=== PATIENT | male | born 1985 | race Caucasian/White ===

== ENCOUNTER 2020-11-07 07:08 | Emergency (ER) | payer MEDICAID, SELFPAY ==
[2020-11-07 07:16] VITALS: BP 157/94; PULSE 67; RESP 16; TEMP 36.3; O2SAT 98
--- NOTE | 2020-11-07 07:17 | W.ED.GENAD ---
Discharge Plan Disposition Patient Disposition: HOME Condition: Stable Discharge Details Chief Complaint: HeadInjury Clinical Impression: Laceration of scalp Primary Care Provider: Miranda,Local ED Provider: Young Bautista Home Meds and New Rx's Prescriptions: No Action No Known Home Meds RF: 0 Discharge Instructions Instructions: Staple Care (ED) Additional Instructions: return in 7-10 days to have the wound evaluated for staple removal if severe worsening pain or yellow white discharge return to the emergency department Medical Decision Making 35 yo male who states he has had tetanus vaccine within 10 years and has no chronic medical problems was out in the [facility] with a flashlight laying out eggs for easter when he bent over and scraped his scalp on a stick. Did not fall or have loc, no n/v and no severe head pain since, has mild pain where he has a 1.5cm scalp laceraiton on superior portion of scalp on the right side without hematoma or palpable skull fracture. No other pain elsewhere. No vision changes. Normal gait, no motor or sensation deficits and CN II-xII intact. MEets all criteria per [place] head [facility] rules not to image his head, will close his wound with cipriano Differential Diagnosis Differential Diagnosis: laceration, abrasion HPI General Mode of arrival: ambulatory. Date/Time Provider Initiated Documentation: 11/07/20 07:10. Limitations to Documentation: no limitations. Information obtained by: patient. History of Present Illness 35 year old M presents to the emergency department with the chief complaint of scalp laceration, described as mild, with intensity rated at 2. Quality is described as aching, and is localized to the head. Patient reports no radiation. Patient started experiencing this hour(s) (2) and it has been constant. No relieving factors improve symptom(s), No exacerbating factors reported . Patient notes no other symptoms.. Patient did receive the following treatments prior to arrival, none Related Data Home Medications Medication Instructions Recorded Confirmed Unknown [No Known Home Meds] 11/07/20 11/07/20 Allergies Allergy/AdvReac Type Severity Reaction Status Date / Time tramadol Allergy Severe Unverified 11/07/20 07:20 Review of Systems All systems reviewed & are unremarkable except as noted in HPI and below Constitutional Constitutional: Denies chills, Denies fever(s) and Denies weakness Eyes Eyes: Denies loss of vision Cardiovascular Cardiovascular: Denies chest pain and Denies dyspnea Respiratory Respiratory: Denies cough and Denies dyspnea Gastrointestinal Gastrointestinal: Denies abdominal pain, Denies nausea and Denies vomiting Neurologic Neurologic: Denies loss of vision and Denies weakness [facility] Social History Smoking/Tobacco Use Status: Never Smoking risk assessment performed?: Yes Alcohol Intake: never Substance use type: does not use Exam Const General: no acute distress Orientation: alert HENMT Head: no palpable skull fracture Ears: external ears normal General nose exam: external nose normal Mouth: moist mucous membranes Eyes General: appearance normal, both eyes and all related structures Neck Neck: normal visual inspection Resp Effort & Inspection: normal respiratory effort and able to speak in complete sentences Cardio Rate: regular rate Skin General skin exam: no rashes or lesions noted Neuro General: patient alert and patient oriented x3 Extrem General: normal to inspection Psych Mental Status: mental status grossly normal Procedures Laceration Laceration 1: Site: scalp Size (cm): 1.5 Description: linear Depth: simple, single layer Local Anesthetic: Lidocaine 1% and with Epi Amount of anesthesia used (mL): 5 Pre-repair: wound explored and irrigated extensively Skin layer closed with: other (cipriano,3)
== END 2020-11-07 07:27 | disposition home or self-care (01) ==
PROVIDERS: Emergency Provider Emergency Medicine
DX: S01.01XA Laceration without foreign body of scalp, initial encounter (principal); W45.8XXA Other foreign body or object entering through skin, initial encounter
CPT/HCPCS: 12001

== ENCOUNTER 2020-11-18 12:11 | Emergency (ER) | payer MEDICAID, SELFPAY ==
--- NOTE | 2020-11-18 12:13 | ED.GENADUL_ITS ---
Discharge Plan Disposition Patient Disposition: HOME Condition: Improving Discharge Details Chief Complaint: SutureRem Clinical Impression: Visit for wound check Primary Care Provider: Miranda,Local ED Provider: Isael Raman Home Meds and New Rx's Prescriptions: No Action No Known Home Meds RF: 0 Discharge Instructions Additional Instructions: Resume normal routine and activities. Medical Decision Making 35-year-old male presents for uneventful removal of 3 cipriano placed on a fourth for a scalp laceration. He has otherwise recently been well and the wound is well-appearing. He is stable for discharge to home following surgical staple removal by nurse staff. HPI General Mode of arrival: ambulatory . Date/Time Provider Initiated Documentation: 11/18/20 12:12 . Limitations to Documentation: no limitations . Information obtained by: patient . History of Present Illness 35 year old M presents to the emergency department with the chief complaint of Presents for staple removal from scalp laceration, no other complaint, Related Data Home Medications Medication Instructions Recorded Confirmed Unknown [No Known Home Meds] 11/07/20 11/07/20 Allergies Allergy/AdvReac Type Severity Reaction Status Date / Time tramadol Allergy Severe Unverified 11/07/20 07:20 General BRYAN: 3 PFSH Social History Smoking/Tobacco Use Status: Never Smoking risk assessment performed?: Yes Alcohol Intake: never Substance use type: does not use Exam Narrative Exam Narrative: GEN: awake, alert, oriented 3. Pleasant, well groomed, interactive. HEAD: Normocephalic, right frontal scalp laceration healed with [address] Neuro: Grossly normal neurologic exam, conversant, interactive. Psych: Speech fluent, thoughts congruent, affect normal
[2020-11-18 12:14] VITALS: BP 159/103; PULSE 79; RESP 16
[2020-11-18 12:20] VITALS: BP 149/98
== END 2020-11-18 12:21 | disposition home or self-care (01) ==
PROVIDERS: Emergency Provider Emergency Medicine
DX: S01.01XD Laceration without foreign body of scalp, subsequent encounter (principal); X58.XXXD Exposure to other specified factors, subsequent encounter

== ENCOUNTER 2022-12-11 20:35 | Emergency (ER) | payer MEDICAID, SELFPAY ==
--- NOTE | 2022-12-11 20:54 | ED.GENADUL_ITS ---
Discharge Plan Disposition Patient Disposition: Home Discharge Details Clinical Impression: Tick bite Primary Care Provider: MirandaLocal ED Provider: Osiel Lofton Home Meds and New Rx's Prescriptions: New doxycycline hyclate 100 mg tablet 100 mg PO BID 10 Days Qty: 20 0RF Discharge Instructions Instructions: Tick Bite (ED) Additional Instructions: Please follow-up with your primary care physician, please return to the emergency department for any worsening symptoms Medical Decision Making 37-year-old male presents after noticing a tick on his left lower extremity was picking at it throughout the day, patient has retained head products of tick in left lower extremity, easily removed with forceps, noted to have concentric red ring small in nature surrounding head parts, consider localized reaction to tick bite versus erythema migrans. Given high prevalence of Lyme's disease in region and this patient with tick bite and rash we will treat empirically with 10-day course of doxycycline. Will give first dose here in department. Home care instructions return precautions given HPI General Date/Time Provider Initiated Documentation: 12/11/22 20:48 . HPI Narrative: 37-year-old male presents with tick embedded in left lower extremity, noticed it today Related Data Home Medications Medication Instructions Recorded Confirmed doxycycline hyclate 100 mg tablet 100 mg PO BID 10 days #20 tabs 12/11/22 Previous Rx's Medication Instructions Recorded doxycycline hyclate 100 mg tablet 100 mg PO BID 10 days #20 tabs 12/11/22 Allergies Allergy/AdvReac Type Severity Reaction Status Date / Time tramadol Allergy Severe Unverified 11/07/20 07:20 General BRYAN: 4 Review of Systems Narrative: Review of Systems Constitutional: negative Eyes: negative ENT: negative Cardiovascular: negative Respiratory: negative Gastrointestinal: negative : negative Musculoskeletal: negative Skin: Tick bite Neurologic: negative Psych: negative PFSH All Active Problems (Updated 12/11/22 @ 21:02 by Osiel Lofton MD) Laceration of scalp (Acute) Visit for wound check (Acute) Tick bite (Acute) Social History Smoking/Tobacco Use Status: Never Smoking risk assessment performed?: Yes Alcohol Intake: never Substance use type: does not use Exam Narrative Exam Narrative: Physical Examination General: alert, awake, cooperative, resting comfortably, no acute distress Extremities: Punctate black retained head products of tick, surrounding erythema in small concentric ring, no fluctuance or purulence
[2022-12-11 20:55] VITALS: BP 130/75; PULSE 97; RESP 18; TEMP 36.7; O2SAT 96
--- NOTE | 2022-12-12 12:16 | NUR.NOTE ---
Nursing Note:pharmacy called about a prescription for the patient
== END 2022-12-11 21:08 | disposition home or self-care (01) ==
PROVIDERS: Emergency Provider Emergency Medicine
DX: S70.362A Insect bite (nonvenomous), left thigh, initial encounter (principal); W57.XXXA Bitten or stung by nonvenomous insect and other nonvenomous arthropods, initial encounter
CPT/HCPCS: 99283

== ENCOUNTER 2023-02-14 07:39 | Emergency (ER) | payer MEDICAID, SELFPAY ==
[2023-02-14 07:39] VITALS: BP 110/81; PULSE 91; RESP 16; TEMP 36.4; O2SAT 96
--- NOTE | 2023-02-14 07:53 | ED.GENADUL_ITS ---
Discharge Plan Disposition Patient Disposition: Home Discharge Details Clinical Impression: Acute ear infection Primary Care Provider: None,None ED Provider: Romario Agrawal Home Meds and New Rx's Prescriptions: New amoxicillin-pot clavulanate 875-125 mg tablet 1 tab PO BID Qty: 14 0RF Discharge Instructions Instructions: Ear Infection (ED) HPI General Date/Time Provider Initiated Documentation: 02/14/23 07:46 . History of Present Illness described as moderate and severe, Quality is described as aching and sharp, and is localized to the head. HPI Narrative: 37 year old male presents to the ED with c/o R ear pain, sinus pressure and sore throat that started last night. He says that the pain has been constant and severe at times. No fevers. Denies any trauma. No cough. No cp/sob. Nothing makes better or worse. Related Data Home Medications Medication Instructions Recorded Confirmed amoxicillin 875 mg-potassium 1 tab PO BID #14 tabs 02/14/23 clavulanate 125 mg tablet Previous Rx's Medication Instructions Recorded amoxicillin 875 mg-potassium 1 tab PO BID #14 tabs 02/14/23 clavulanate 125 mg tablet Allergies Allergy/AdvReac Type Severity Reaction Status Date / Time tramadol Allergy Severe Anaphylaxis Unverified 02/14/23 07:45 General Stated Complaint: EarProblem BRYAN: 4 Review of Systems Narrative: CONST: no fever or chills HEENT: +ear pain, +sore throat SKIN: no rashes PULM: no sob, no cough CARD: no cp, no palpitations EXTR: no swelling PFSH All Active Problems (Updated 02/14/23 @ 08:01 by Romario Agrawal MD) Laceration of scalp (Acute) Visit for wound check (Acute) Acute ear infection (Acute) Social History Smoking/Tobacco Use Status: Never Smoking risk assessment performed?: Yes Alcohol Intake: never Drug use: Never Substance use type: does not use Do you feel safe at home: Yes Do you feel safe in your relationship?: Yes Exam Narrative Exam Narrative: Const: well appearing, no acute distress HEENT: normocephalic, atraumatic; MMM. No significant posterior oropharynx redness, uvula midline. R TM red with red appearing vesicles Lungs: CTA, no wheezing or rales Heart: RRR Skin: no rashes Course 37 year old with R ear pain and sinus congestion, R TM very angry and red appearing, denies any trauma to his ear. Will start on abx, pt can add decongestant, as well, and f/u with pcp. Vital Signs Vital signs: Vital Signs Temperature 36.4 C L 02/14/23 07:39 Pulse 91 H 02/14/23 07:39 Respiratory Rate 16 02/14/23 07:39 Blood Pressure 110/81 02/14/23 07:39 Pulse Oximetry 96 02/14/23 07:39 Temperature 36.4 C L 02/14/23 07:39 Temperature Source Temporal Artery Scan 02/14/23 07:39 Pulse 91 H 02/14/23 07:39 Respiratory Rate 16 02/14/23 07:39 Respiratory Effort Normal 02/14/23 07:43 Blood Pressure 110/81 02/14/23 07:39 Blood Pressure Position Sitting 02/14/23 07:39 Pulse Oximetry 96 02/14/23 07:39 Oxygen Delivery Method Room Air 02/14/23 07:39 Oxygen Flow Rate 0 02/14/23 07:39 Pain Level 9 02/14/23 07:43 PAWSS Have you Been Recently Intoxicated or Drunk Within the Last 30 days?: No Have you Ever Experienced Previous Episodes of Alcohol Withdrawal?: No Have you ever Experienced Withdrawal Seizures?: No Have you ever Experienced Delirium Tremens(DT)s?: No Have you ever undergone Alcohol Rehabilitation Treatment (i.e, inpt ot outpatient treatment programs)?: No Have you ever Experienced Blackouts?: No Have you ever Combined Alcohol with other Downers within the last 90 days?: No Have you ever Combined Alcohol with any other Substance of Abuse during the last 90 days?: No Result: 0
== END 2023-02-14 08:10 | disposition home or self-care (01) ==
PROVIDERS: Emergency Provider Emergency Medicine
DX: H66.91 Otitis media, unspecified, right ear (principal)
CPT/HCPCS: 87880; 99283; 87081; 99284

== ENCOUNTER 2023-04-11 07:00 | Emergency (ER) | payer MEDICAID, SELFPAY ==
[2023-04-11 07:04] VITALS: BP 120/105; PULSE 89; RESP 18; TEMP 36.3; O2SAT 96
[2023-04-11 08:42] LABS: Absolute Basophil Count 0.05 10^3/uL (0.0-0.2); Absolute Monocyte Count 1.39 10^3/uL (0.1-0.8); Basophils % 0.3; HCT 46.7 % (40.0-50.0); HGB 15.1 g/dL (13.5-17.5); Immature Grans % 0.6; Lymphocytes % 14.8; MCHC 32.3 % (32.0-36.0); MCV 90 fL (80-95); MPV 8.8 fL (8.0-11.0); Monocytes % 8.6; Neutrophils % 74.7; Platelet Count 354 10^3/uL (130-400); RBC 5.21 10^6/uL (4.36-5.78); RDW 13.2 % (11.8-14.1); RDW-SD 43.5 fL
[2023-04-11 08:43] LABS: Absolute Eosinophil Count 0.16 10^3/uL (0.0-0.7)
[2023-04-11 08:47] LABS: ESR 30 mm/hr (0-15)
--- NOTE | 2023-04-11 08:48 | DI.RAD_ITS ---
Exam(s) XR HAND RT COMPLETE EXAM: XR HAND RT COMPLETE CLINICAL HISTORY: nail into palm 3 days ago. TECHNIQUE: 2D digital imaging was performed of the right hand. Three images were obtained. AP, late ral and oblique views were obtained. COMPARISON: No exams were available for comparison FINDINGS: BONES: No acute fracture is present. No bony destructive lesion is seen. JOINTS: No dislocation present. SOFT TISSUE: No radiopaque foreign body or gas is seen in the soft tissues. There is diffuse swellin g of the hand. IMPRESSION: 1. No acute fracture, dislocation, soft tissue gas or foreign body. 2. There is diffuse soft tissue swelling of the hand. DATA REPOSITORY: RADIATION DOSE DELIVERED:
[2023-04-11] MEDS: Tetanus & Diphtheria Tox,ADULT 0.5 ML VIAL IM (08:58)
[2023-04-11 09:02] LABS: ALT 27 U/L (16-63); AST 13 U/L (15-37); Albumin 3.5 g/dL (3.4-5.0); Alkaline Phosphatase 65 U/L (46-116); Anion Gap 9.1 mmol/L (3-11); BUN 9 mg/dL (7-18); Bilirubin, Total 0.8 mg/dL (0.2-1.0); C-Reactive Protein 7.87 mg/dL (0.0-0.3); CO2 27.9 mmol/L (21.0-32.0); Chloride 101 mmol/L (98-107); Glucose 97 mg/dL (74-106); Potassium 3.7 mmol/L (3.5-5.1); Sodium 138 mmol/L (136-145); Total Protein 7.4 g/dL (6.4-8.2)
[2023-04-11] MEDS: AZITHROMYCIN 500 MG in Normal Saline 250 ML 250 MG IVPB (09:13)
--- NOTE | 2023-04-11 09:13 | ED.GENADUL_ITS ---
Discharge Plan Disposition Patient Disposition: Home Condition: Good Discharge Details Clinical Impression: Cat scratch of hand, Cellulitis Primary Care Provider: None,None ED Provider: Petty Vigil Home Meds and New Rx's Prescriptions: New clindamycin HCl 300 mg capsule 450 mg PO Q8H Qty: 21 0RF azithromycin 250 mg tablet 250 mg PO DAILY 4 Days Qty: 4 0RF Rx Instructions: start tomorrow No Action amoxicillin-pot clavulanate 875-125 mg tablet 1 tab PO BID Qty: 14 0RF Patient Comments: Pt states no longer taking - ABX completed several months ago ML 04/11/23 Discharge Instructions Instructions: Cellulitis (ED), Cat Scratch Disease (ED) Additional Instructions: Please take tyelnol and ibuprofen over the counter for pain; follow the directions on the bottle. Take the antibiotics as prescribed until they are all gone. Follow up with your primary care doctor as soon as possible (no later than Sunday) to follow up on your visit here- a referral has been made for you. IT IS VERY IMPORTANT THAT YOU RETURN TO THE EMERGENCY DEPARTMENT IF YOUR SYMPTOMS DO NOT IMPROVE OR IF THEY WORSEN. INFECTIONS IN THE HAND CAN BE VERY SERIOUS AND MAY REQUIRE SURGERY FOR YOU TO KEEP THE USE OF YOUR HAND AND BE ABLE TO CONTINUE WORKING. Medical Decision Making 37yo previously healthy male presenting with right hand pain and swelling for the past three days. Recent injuries include nail into center of palm and cat scratch to thumb. Vital signs reassuring, not septic. Exam with what appears to be cellulitis surrounding injury to the palm as well as swelling in digits most pronounced in the thumb. Exam not concerning for flexor tenosynovitis and no clear felon though may be early/developing. Given toradol for pain, tetanus booster. Will treat for likely bartonella with dose of IV azithromycin. XR with no fracture or foreign body on my view, agree with radiology read below. Labs reviewed as below, leukocytosis to 16, moderately elevated inflammatory markers. CMP reassuring with no acidosis. Pain improved after toradol. No indication for admission or surgical consult at this time and patient strongly prefers to go go home and followup on an outpatient basis which is reasonable. He does not have a primary care doctor currently- placed on care management list with plan for appointment Sunday to re-examine hand and potentially repeat bloodwork. I reviewed extensively with Cruz and his significant other at bedside the importance of monitoring for worsening of symptoms as should things progress it is very possible he would need IV antibiotics and/or surgery to be involved. Discharged home with close outpatient followup; plan for 5 day course of azithromycin and 7 day course of clindamycin. Discharged home; discharge instructions including return precautions were reviewed with patient who verbalized understanding. All questions were answered and they are in full agreement with the plan. Imaging Data Radiologic Study: Imaging: X-Ray Radiologist's impression: IMPRESSION: 1. No acute fracture, dislocation, soft tissue gas or foreign body. 2. There is diffuse soft tissue swelling of the hand. Lab Data Lab results reviewed: Yes I reviewed the patient's lab results. Labs: Laboratory Tests Range/Units 04/11/23 04/11/23 04/11/23 08:33 08:33 08:33 WBC (4.4-10.8) 10^3/uL 16.20 H RBC (4.36-5.78) 10^6/uL 5.21 Hgb (13.5-17.5) g/dL 15.1 Hct (40.0-50.0) % 46.7 MCV (80-95) fL 90 MCH (27.0-33.0) pg 29.0 MCHC (32.0-36.0) % 32.3 RDW (11.8-14.1) % 13.2 Plt Count (130-400) 10^3/uL 354 MPV (8.0-11.0) fL 8.8 Immature Gran % 0.6 Neutrophils % 74.7 Lymphocytes % 14.8 Monocytes % 8.6 Eosinophils % 1.0 Basophils % 0.3 Nucleated RBC % (0.0-0.3) % 0.0 Absolute Neutrophils (1.2-6.7) 10^3/uL 12.10 H Absolute Lymphocytes (1.2-3.4) 10^3/uL 2.40 Absolute Monocytes (0.1-0.8) 10^3/uL 1.39 H Absolute Eosinophils (0.0-0.7) 10^3/uL 0.16 Absolute Basophils (0.0-0.2) 10^3/uL 0.05 ESR (0-15) mm/hr 30 H Sodium (136-145) mmol/L 138 Potassium (3.5-5.1) mmol/L 3.7 Chloride (98-107) mmol/L 101 Carbon Dioxide (21.0-32.0) mmol/L 27.9 Anion Gap (3-11) mmol/L 9.1 BUN (7-18) mg/dL 9 Creatinine (0.70-1.30) mg/dL 1.0 Est GFR (CKD-EPI 2020) (mL/min/1.73m2) 98.80 Glucose (74-106) mg/dL 97 Calcium (8.5-10.1) mg/dL 9.0 Total Bilirubin (0.2-1.0) mg/dL 0.8 AST (15-37) U/L 13 L ALT (16-63) U/L 27 Alkaline Phosphatase (46-116) U/L 65 C-Reactive Protein (0.0-0.3) mg/dL 7.87 H Total Protein (6.4-8.2) g/dL 7.4 Albumin (3.4-5.0) g/dL 3.5 HPI General Mode of arrival: ambulatory . Date/Time Provider Initiated Documentation: 04/11/23 07:38 . Limitations to Documentation: no limitations . Information obtained by: patient . HPI Narrative: 37yo previously healthy male presenting with right hand pain and swelling for the past three days. Works with hands, multiple recent injuries including nail into palm 3-4 days ago and cat scratch to thumb near base of nail 3 days ago. Pain is worst in palm around site of nail injury and entire thumb now with some involvement of 2nd digit. He has noted swelling. No discharge. Thumb feels somewhat numb, otherwise no numbness or tingling to palm. Pain when he uses his hand. He is otherwise in his usual state of health with no fevers, chills, rash, nausea, vomiting, malaise, or other concerns. Related Data Home Medications Medication Instructions Recorded Confirmed amoxicillin 875 mg-potassium 1 tab PO BID #14 tabs 02/14/23 clavulanate 125 mg tablet azithromycin 250 mg tablet 250 mg PO DAILY 4 days #4 tabs 04/11/23 clindamycin HCl 300 mg capsule 450 mg PO Q8H #21 caps 04/11/23 Previous Rx's Medication Instructions Recorded amoxicillin 875 mg-potassium 1 tab PO BID #14 tabs 02/14/23 clavulanate 125 mg tablet azithromycin 250 mg tablet 250 mg PO DAILY 4 days #4 tabs 04/11/23 clindamycin HCl 300 mg capsule 450 mg PO Q8H #21 caps 04/11/23 Allergies Allergy/AdvReac Type Severity Reaction Status Date / Time tramadol Allergy Severe Anaphylaxis Unverified 04/11/23 07:24 cat dander AdvReac Mild Itching Unverified 04/11/23 07:25 General Stated Complaint: Cellulitis BRYAN: 3 Review of Systems Narrative: see HPI PFSH All Active Problems (Updated 04/11/23 @ 09:16 by Petty Vigil MD) Laceration of scalp (Acute) Visit for wound check (Acute) Cat scratch of hand (Acute) Cellulitis (Acute) Social History Smoking/Tobacco Use Status: Never Smoking risk assessment performed?: Yes Alcohol Intake: never Drug use: Never Substance use type: does not use Housing: house Do you feel safe at home: Yes Do you feel safe in your relationship?: Yes Exam Narrative Exam Narrative: General: Alert, well appearing, well nourished, in no acute distress. Head: Normocephalic, atraumatic Neck: Trachea midline, Neck supple. Cardiac: No cyanosis. Resp: No respiratory distress. Speakin in full sentences. Abd: nondistended. Extremities: No peripheral edema. Right hand with scab in central palm with surrounding erythema, no palpable mass/abscess/fluctuance. Thumb swollen throughout, subjectively diminished sensation to light touch, pain with passive ROM flexion > extension. No fluctance, tender throughout not worse in fingertip pulp. Capillary refill intact at tip of thumb. 2nd-5th digits mildly swollen, pain in center of palm with passive flexion and extension of digits without pain in digits themselves. Neurologic: GCS 15. Moves all extremities freely against gravity Course Vital Signs Vital signs: Vital Signs Temperature 36.3 C L 04/11/23 07:04 Pulse 89 04/11/23 07:04 Respiratory Rate 18 04/11/23 07:04 Blood Pressure 120/105 H 04/11/23 07:04 Pulse Oximetry 96 04/11/23 07:04 Temperature 36.3 C L 04/11/23 07:04 Temperature Source Tympanic 04/11/23 07:04 Pulse 89 04/11/23 07:04 Respiratory Rate 18 04/11/23 07:04 Blood Pressure 120/105 H 04/11/23 07:04 Pulse Oximetry 96 04/11/23 07:04 Pain Level 10 04/11/23 07:17 Lab/Test Results Lab/Test Results: Laboratory Tests Range/Units 04/11/23 04/11/23 04/11/23 08:33 08:33 08:33 WBC (4.4-10.8) 10^3/uL 16.20 H RBC (4.36-5.78) 10^6/uL 5.21 Hgb (13.5-17.5) g/dL 15.1 Hct (40.0-50.0) % 46.7 MCV (80-95) fL 90 MCH (27.0-33.0) pg 29.0 MCHC (32.0-36.0) % 32.3 RDW (11.8-14.1) % 13.2 Plt Count (130-400) 10^3/uL 354 MPV (8.0-11.0) fL 8.8 Immature Gran % 0.6 Neutrophils % 74.7 Lymphocytes % 14.8 Monocytes % 8.6 Eosinophils % 1.0 Basophils % 0.3 Nucleated RBC % (0.0-0.3) % 0.0 Absolute Neutrophils (1.2-6.7) 10^3/uL 12.10 H Absolute Lymphocytes (1.2-3.4) 10^3/uL 2.40 Absolute Monocytes (0.1-0.8) 10^3/uL 1.39 H Absolute Eosinophils (0.0-0.7) 10^3/uL 0.16 Absolute Basophils (0.0-0.2) 10^3/uL 0.05 ESR (0-15) mm/hr 30 H Sodium (136-145) mmol/L 138 Potassium (3.5-5.1) mmol/L 3.7 Chloride (98-107) mmol/L 101 Carbon Dioxide (21.0-32.0) mmol/L 27.9 Anion Gap (3-11) mmol/L 9.1 BUN (7-18) mg/dL 9 Creatinine (0.70-1.30) mg/dL 1.0 Est GFR (CKD-EPI 2020) (mL/min/1.73m2) 98.80 Glucose (74-106) mg/dL 97 Calcium (8.5-10.1) mg/dL 9.0 Total Bilirubin (0.2-1.0) mg/dL 0.8 AST (15-37) U/L 13 L ALT (16-63) U/L 27 Alkaline Phosphatase (46-116) U/L 65 C-Reactive Protein (0.0-0.3) mg/dL 7.87 H Total Protein (6.4-8.2) g/dL 7.4 Albumin (3.4-5.0) g/dL 3.5 PAWSS Have you Been Recently Intoxicated or Drunk Within the Last 30 days?: No Have you Ever Experienced Previous Episodes of Alcohol Withdrawal?: No Have you ever Experienced Withdrawal Seizures?: No Have you ever Experienced Delirium Tremens(DT)s?: No Have you ever undergone Alcohol Rehabilitation Treatment (i.e, inpt ot outpatient treatment programs)?: No Have you ever Experienced Blackouts?: No Have you ever Combined Alcohol with other Downers within the last 90 days?: No Have you ever Combined Alcohol with any other Substance of Abuse during the last 90 days?: No Result: 0
[2023-04-11] MEDS: Ketorolac 15 MG/ML VIAL IVP (09:22)
--- NOTE | 2023-04-11 09:27 | NUR.NOTE ---
Nursing Note: PT needs to establish care with a PCP VAIBHAV for cellulitis. Roxane, ED
== END 2023-04-11 10:27 | disposition home or self-care (01) ==
PROVIDERS: Emergency Provider Student in an Organized Health Care Education/Training Program
DX: S60.311A Abrasion of right thumb, initial encounter; S61.431A Puncture wound without foreign body of right hand, initial encounter; W55.03XA Scratched by cat, initial encounter; W22.8XXA Striking against or struck by other objects, initial encounter
CPT/HCPCS: 36415; 80053; 85652; 90471; 96365; 96375; 99284; 73130; 85025; 86140; J0456; J1885

== ENCOUNTER 2023-10-24 05:42 | Observation (INO) | payer MEDICAID, SELFPAY ==
[2023-10-24] VITALS (26 sets, daily range): BP systolic 120–165; BP diastolic 59–111; PULSE 46–90; RESP 16–30; TEMP 35.1–36.5; O2SAT 96–100; BMI 40.3
--- NOTE | 2023-10-24 05:45 | RT.EKG_ITS ---
APPROVED REPORT Exam: Resting ECG Reason for Exam: chest pain Patient Location: E HR:57 bpm ECG Measurements Heart Rate 57 AXIS LA 178 P 64 QRSd 88 QRS 63 QT 419 T 67 QTc 409 Conclusion Sinus bradycardia...rate< 60 Physician: no stemi
--- NOTE | 2023-10-24 06:00 | DI.CT_ITS ---
Exam(s) CT CHEST/ABD/PEL W EXAM: CT CHEST/ABD/PEL W CLINICAL HISTORY: RUQ pain, vomiting, eval GB. TECHNIQUE: Imaging Protocol: Axial computed tomography images with coronal and sagittal reformatted images were created and reviewed CONTRAST MATERIAL: Intravenous: Omnipaque 350 Contrast volume:100 ml Oral: no COMPARISON: No exams were available for comparison FINDINGS: CHEST: Tracheobronchial tree: Patent where visualized. Pulmonary parenchyma: No consolidation or dominant measurable mass. Pleura: No effusion or pneumothorax. Lymph nodes: Within normal limits. Aorta: Thoracic portion non-dilated. Heart: No pericardial effusion. Bones: Unremarkable for age. No lytic or blastic lesions.No compression fractures. Soft tissues: Bilateral gynecomastia. Left diaphragm mildly elevated. ABDOMEN and PELVIS: Liver: Normal density. No measurable mass. Gallbladder and biliary tract: Peripherally calcified 2 centimeter gallstone in the gallbladder neck. Gallbladder mildly distended. Slight prominence of the gallbladder wall. No biliary dilatation. Pancreas: Normal density, no abnormal calcifications or inflammatory process. Spleen: Normal. Kidneys: Normal size, contour and axis. No radiodense stones. No obstructive uropathy. No suspicious masses seen. Adrenal glands: No masses seen. Aorta: Abdominal portion non-dilated. Lymph nodes: Within normal limits. Soft tissues: Unremarkable. Bladder: Unremarkable. Bowel: No obstruction or bowel wall thickening. Prior appendectomy. Diverticulosis of the descendi ng and sigmoid colon. No evidence of diverticulitis. Peritoneal cavity: No ascites. No focal collection. No mesenteric inflammatory response. Bones: Degenerative disc changes at L4-5. Reproductive organs: Within normal limits. IMPRESSION: No acute abnormality in the chest. 2 centimeter gallstone at the gallbladder neck. Mild gallbladder distention and wall thickening coul d indicate cholecystitis. Ultrasound could be performed for further evaluation. RADIATION DOSE DELIVERED: Total DLP DATA REPOSITORY: All CT scans at this facility are submitted to the National Radiology Data Registry (NRDR) Dose Index Registry (DIR) with the [employer] (ACR). RADIATION OPTIMIZATION: All CT scans at this facility use at least one of these dose optimization te chniques: automated exposure control; mA and/or kV adjustment per patient size (includes targeted exa ms where dose is matched to clinical indication); or iterative reconstruction.
--- NOTE | 2023-10-24 06:04 | W.ED.GENAD ---
Discharge Plan Disposition Patient Disposition: Admit to [facility] Condition: Good Discharge Details Chief Complaint: Chest Pain Clinical Impression: Acute cholecystitis Primary Care Provider: Unknown,Unknown ED Provider: Xu Platt Home Meds and New Rx's Prescriptions: No Action clindamycin HCl 300 mg capsule 450 mg PO Q8H Qty: 21 0RF amoxicillin-pot clavulanate 875-125 mg tablet 1 tab PO BID Qty: 14 0RF Patient Comments: Pt states no longer taking - ABX completed several months ago ML 04/11/23 HPI General Date/Time Provider Initiated Documentation: 10/24/23 05:43. HPI Narrative: 38-year-old male with a past medical history of cat scratch just finishing up a dose of Augmentin, previous appendicitis, who presents today for evaluation of right upper quadrant abdominal pain. Patient states that about 3 hours ago the pain began, it is sharp and stabbing in nature. It radiates from the right upper quadrant to the back and then back forward. He has had nausea and vomiting. He is diaphoretic at home. He comes with his significant other at bedside. He denies ever having symptoms like this in the past. He denies any chest discomfort or significant pleuritic pain. No other complaints at this time. No other modifying factors. Related Data Home Medications Medication Instructions Recorded Confirmed amoxicillin 875 mg-potassium 1 tab PO BID #14 tabs 02/14/23 10/24/23 clavulanate 125 mg tablet clindamycin HCl 300 mg capsule 450 mg (1.5 x 300 mg) PO Q8H #21 04/11/23 10/24/23 caps Previous Rx's Medication Instructions Recorded amoxicillin 875 mg-potassium 1 tab PO BID #14 tabs 02/14/23 clavulanate 125 mg tablet clindamycin HCl 300 mg capsule 450 mg (1.5 x 300 mg) PO Q8H #21 04/11/23 caps Allergies Allergy/AdvReac Type Severity Reaction Status Date / Time tramadol Allergy Severe Anaphylaxis Unverified 10/24/23 06:32 cat dander AdvReac Mild Itching Unverified 10/24/23 06:32 General Stated Complaint: Chest Pain BRYAN: 3 Review of Systems All systems reviewed & are unremarkable except as noted in HPI and below Exam Narrative Exam Narrative: 1.Const: Well-nourished, Well-developed, appearing stated age 2.Eyes: PERRL, no conjunctival injection, and symmetrical lids. 3.ENT: Atraumatic external nose and ears. Moist MM. Neck: Symmetric, trachea midline, No thyromegaly. 4.CVS: +S1/S2, No murmurs or gallops. Peripheral pulses 2+ and equal in all extremities. Brisk capillary refill in all extremities. 5.RESP: Unlabored respiratory effort. Clear to auscultation bilaterally. No wheezes rales or rhonchi 6.GI: Soft, nondistended. Mild to moderate right upper quadrant tenderness on palpation. Negative Irvin sign. No pain to McBurney's point. 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 Sensation grossly intact, no focal neurologic deficits. 10.Psych: (AAO) x3. Appropriate mood and affect Course Vital Signs Vital signs: Vital Signs Pulse 62 10/24/23 05:52 Respiratory Rate 26 H 10/24/23 05:52 Blood Pressure 157/103 H 10/24/23 05:52 Pulse Oximetry 100 10/24/23 05:52 Pulse 62 10/24/23 05:52 Respiratory Rate 26 H 10/24/23 05:52 Respiratory Effort Normal 10/24/23 05:57 Blood Pressure 157/103 H 10/24/23 05:52 Pulse Oximetry 100 10/24/23 05:52 Medical Decision Making 38-year-old male with a past medical history of cat scratch just finishing up a dose of Augmentin, previous appendicitis, who presents today for evaluation of right upper quadrant abdominal pain. Patient states that about 3 hours ago the pain began, it is sharp and stabbing in nature. It radiates from the right upper quadrant to the back and then back forward. He has had nausea and vomiting. He is diaphoretic at home. He comes with his significant other at bedside. He denies ever having symptoms like this in the past. He denies any chest discomfort or significant pleuritic pain. No other complaints at this time. No other modifying factors. Exam demonstrates a diaphoretic appearing male, EKG shows no evidence of STEMI. Mild to moderate right upper quadrant tenderness, however negative Irvin sign. Differential includes biliary colic, cholecystitis, symptoms appear inconsistent with PE. No history to suggest pneumothorax. Dissection seems unlikely. We will get CT imaging of the right upper quadrant, treat the patient's pain, get a troponin, lipase to evaluate for pancreatitis, monitor closely and reassess. 7:54 AM Patient has an elevated white count, lactate high. CT scan shows evidence of acute cholecystitis. Large gallstone is present. Bilirubin level stable. Patient feels better after 8 of morphine and 1 of Dilaudid and Toradol. Zosyn was started. EKG and troponin normal. Discussed the case with surgeon Dr. Gibbs, he agrees with the plan and will place orders for admission. I have extensively reviewed the treatment plan with the patient. I have addressed all patient concerns at this time. I have also discussed the plan with the admitting physician and they agree with the current assessment and plan and have agreed to assume responsibility for the patient. All parties demonstrate verbal understanding and agreement with our assessment and plan at this time. The documentation in this chart was dictated using [employer] dictation software. Please excuse any dictation errors. FINDINGS: Tubes, catheters and devices: Single pelvic surgical clip is noted. Lungs: Please see chest CT report above. Heart: Please see chest CT report above. Liver: Unremarkable. Gallbladder and bile ducts: Moderate-sized peripherally calcified gallstone is present. Gallbladder is slightly distended with CT appearance of pericholecystic fluid within the gallbladder fossa, mild circumferential prominence of the gallbladder wall. Pancreas: Normal. No ductal dilation. Spleen: Normal. No splenomegaly. Adrenal glands: Normal. No mass. Kidneys and ureters: Normal. No hydronephrosis. Stomach and bowel: Diverticulosis without evidence of diverticulitis. Appendix: Not seen, correlate with patient history for surgical removal. Intraperitoneal space: Unremarkable. No free air. No significant fluid collection. Retroperitoneal space: Right retroperitoneal calcifications, likely secondary to appendectomy. 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 Lymph nodes: Unremarkable. No enlarged lymph nodes. Urinary bladder: Unremarkable as visualized. Reproductive: Bilateral, [id number]-right varicoceles. Bones/joints: Degenerative changes of the visualized osseous structures, mild. Soft tissues: Unremarkable. IMPRESSION: 1. Findings suggest cholecystitis, however these findings should be confirmed with ultrasound. 2. Additional findings as above. Thank you for allowing us to participate in the care of your patient. Dictated and Authenticated by: Dajuan Jain DO 10/24/2023 7:39 AM Eastern Time ([place] & [place]) Quality:SDOH Health Related Social Needs: No Data to Display PFSH All Active Problems (Updated 10/24/23 @ 07:54 by Xu Platt DO) Acute cholecystitis (Acute) Visit for wound check (Acute) Laceration of scalp (Acute) Social History Smoking/Tobacco Use Status: Never Smoking risk assessment performed?: Yes Alcohol Intake: never Drug use: Never Substance use type: does not use Housing: house Do you feel safe at home: Yes Do you feel safe in your relationship?: Yes
[2023-10-24 06:13] LABS: Lactate 2.2 mmol/L (0.6-1.4)
[2023-10-24] MEDS: Ketorolac 15 MG/ML VIAL IVP ×2 (06:13→23:16)
[2023-10-24] MEDS: MORPHine 4 MG/ML SYR IVP (06:13)
[2023-10-24] MEDS: Ondansetron 4 MG/2 ML VIAL IVP (06:14)
[2023-10-24] MEDS: Normal Saline 1,000 ML 1000 ML IV (06:14)
[2023-10-24 06:15] LABS: Absolute Basophil Count 0.06 10^3/uL (0.0-0.2); Absolute Eosinophil Count 0.24 10^3/uL (0.0-0.7); Absolute Lymphocyte Count 3.31 10^3/uL (1.2-3.4); Absolute Monocyte Count 1.09 10^3/uL (0.1-0.8); Basophils % 0.4; Eosinophils % 1.6; HCT 49.8 % (40.0-50.0); HGB 16.2 g/dL (13.5-17.5); Immature Grans % 0.7; Lymphocytes % 22.2; MCH 30.5 pg (27.0-33.0); MCHC 32.5 % (32.0-36.0); MCV 94 fL (80-95); MPV 9.1 fL (8.0-11.0); Monocytes % 7.3; Neutrophils % 67.8; Platelet Count 337 10^3/uL (130-400); RBC 5.32 10^6/uL (4.36-5.78); RDW-SD 44.3 fL; WBC 14.93 10^3/uL (4.4-10.8)
[2023-10-24 06:17] LABS: Absolute Neutrophil Count 10.12 10^3/uL (1.2-6.7)
[2023-10-24 06:29] LABS: INR 0.9 (0.9-1.1); PTT Activated 23.5 sec (23.6-32.8); Prothrombin Time 9.5 sec (9.1-11.1)
[2023-10-24 06:47] LABS: ALT 26 U/L (16-63); AST 18 U/L (15-37); Albumin 3.3 g/dL (3.4-5.0); Alkaline Phosphatase 61 U/L (46-116); Anion Gap 10.1 mmol/L (3-11); BUN 16 mg/dL (7-18); Bilirubin, Total 0.3 mg/dL (0.2-1.0); CO2 26.9 mmol/L (21.0-32.0); CREATININE 1.2 mg/dL (0.70-1.30); Calcium 9.3 mg/dL (8.5-10.1); Chloride 105 mmol/L (98-107); Estimated GFR 78.89 (mL/min/1.73m2); Glucose 121 mg/dL (74-106); Lipase 54 U/L (16-77); Potassium 3.7 mmol/L (3.5-5.1); Sodium 142 mmol/L (136-145); Troponin I < 50 ng/L (< or =60)
[2023-10-24] MEDS: Omnipaque 350 MG/ML 100 ML BTL IJ (06:59)
[2023-10-24] MEDS: HYDROmorphone 2 MG/ML SYR 1 MG IVP (07:28)
--- NOTE | 2023-10-24 07:39 | DI.VRAD_ITS ---
PROCEDURE INFORMATION: Exam: CT Chest With Contrast; Diagnostic Exam date and time: 10/24/2023 7:03 AM Age: 38 years old Clinical indication: Abdominal pain; Localized; Right upper quadrant (ruq); Patient HX: Ruq pain, vomiting TECHNIQUE: Imaging protocol: Diagnostic computed tomography of the chest with contrast. 3D rendering (Not supervised by radiologist): MIP and/or 3D reconstructed images were created by the technologist. COMPARISON: No relevant prior studies available. FINDINGS: Lungs: Left basilar atelectasis and/or scarring. Right upper lobe posterior scarring versus atelectasis. Pleural spaces: Unremarkable. No pneumothorax. No pleural effusion. Heart: Unremarkable. No cardiomegaly. No pericardial effusion. Lymph nodes: Unremarkable. No enlarged lymph nodes. Vasculature: Unremarkable. No aortic aneurysm. Diaphragm: Left diaphragmatic eventration. No hernia is noted. Bones/joints: Mild scattered degenerative change of the visualized osseous structures. Soft tissues: Bilateral gynecomastia. IMPRESSION: 1. No acute intrathoracic findings. 2. Additional findings as above. PROCEDURE INFORMATION: Exam: CT Abdomen And Pelvis With Contrast Exam date and time: 10/24/2023 7:03 AM Age: 38 years old Clinical indication: Abdominal pain; Localized; Right upper quadrant (ruq); Patient HX: Ruq pain, vomiting TECHNIQUE: Imaging protocol: Computed tomography of the abdomen and pelvis with contrast. 3D rendering (Not supervised by radiologist): MIP and/or 3D reconstructed images were created by the technologist. COMPARISON: No relevant prior studies available. FINDINGS: Tubes, catheters and devices: Single pelvic surgical clip is noted. Lungs: Please see chest CT report above. Heart: Please see chest CT report above. Liver: Unremarkable. Gallbladder and bile ducts: Moderate-sized peripherally calcified gallstone is present. Gallbladder is slightly distended with CT appearance of pericholecystic fluid within the gallbladder fossa, mild circumferential prominence of the gallbladder wall. Pancreas: Normal. No ductal dilation. Spleen: Normal. No splenomegaly. Adrenal glands: Normal. No mass. Kidneys and ureters: Normal. No hydronephrosis. Stomach and bowel: Diverticulosis without evidence of diverticulitis. Appendix: Not seen, correlate with patient history for surgical removal. Intraperitoneal space: Unremarkable. No free air. No significant fluid collection. Retroperitoneal space: Right retroperitoneal calcifications, likely secondary to appendectomy. 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 Lymph nodes: Unremarkable. No enlarged lymph nodes. Urinary bladder: Unremarkable as visualized. Reproductive: Bilateral, [id number]-right varicoceles. Bones/joints: Degenerative changes of the visualized osseous structures, mild. Soft tissues: Unremarkable. IMPRESSION: 1. Findings suggest cholecystitis, however these findings should be confirmed with ultrasound. 2. Additional findings as above. Dictated and Authenticated by: Dajuan Jain MD. Ordering:KATHARINE Mcnair MD
--- NOTE | 2023-10-24 07:51 | W.PM.HP.N ---
Date of service: 10/24/23 Time of Service: 07:51 Assessment and Plan Assessment and plan (1) Acute cholecystitis: Status: Acute Assessment and plan: History, physical exam, and imaging all seem consistent with acute cholecystitis. We talked about the nature of cholecystitis, and the role of surgery and treatment. He is already been started on some broad-spectrum antibiotics. I think he is a good candidate for a laparoscopic approach, although I did explain that given the acute onset of the inflammation, this may make the nature of the operation a bit more challenging. In that regards, there is a slightly higher conversion rate then for elective cholecystectomy. I think he has a good understanding of the nature of the procedure, as well as the risks and the benefits. Will make arrangements to proceed with cholecystectomy this afternoon. History of Present Illness History of Present Illness Chief Complaint: abdominal pain Narrative: Young is 38 years old, and he comes to the emergency department after the acute onset of upper abdominal pain and lower chest pain that started around 3 AM. He describes it as sharp and stabbing. He is never had anything like this before. In the ER, he was found to have a leukocytosis to 15,000. Liver function tests were normal. He underwent a CT scan of the abdomen and pelvis that demonstrated findings consistent with acute cholecystitis. Review of Systems Constitutional Constitutional: Reports anorexia, Denies fever(s), Denies weakness and Denies weight loss Eyes Eyes: Reports system reviewed and no additional complaints, except as documented ENT Ears, Nose, Mouth, and Throat: Reports system reviewed and no additional complaints, except as documented Cardiovascular Cardiovascular: Reports system reviewed and no additional complaints, except as documented Respiratory Respiratory: Reports system reviewed and no additional complaints, except as documented Gastrointestinal Gastrointestinal: Reports abdominal pain, Denies belching, Denies bloating, Denies change in bowel habits, Reports nausea and Denies vomiting Genitourinary Genitourinary: Reports system reviewed and no additional complaints, except as documented Musculoskeletal Musculoskeletal: Reports system reviewed and no additional complaints, except as documented Integumentary/Breasts Skin/Breast: Reports system reviewed and no additional complaints, except as documented Neurologic Neurologic: Denies weakness Psychiatric Psychiatric: Reports system reviewed and no additional complaints, except as documented Endocrine Endocrine: Reports system reviewed and no additional complaints, except as documented Hematologic/Lymphatic Hematologic/Lymphatic: Denies easy bleeding and Denies easy bruising PFSH All Active Problems Acute cholecystitis (Acute) Visit for wound check (Acute) Laceration of scalp (Acute) Social History Smoking/Tobacco Use Status: Never Smoking risk assessment performed?: Yes Alcohol Intake: never Drug use: Never Substance use type: does not use Housing: house Do you feel safe at home: Yes Do you feel safe in your relationship?: Yes Meds Allergies and Home Medications Allergies Allergy/AdvReac Type Severity Reaction Status Date / Time tramadol Allergy Severe Anaphylaxis Unverified 10/24/23 06:32 cat dander AdvReac Mild Itching Unverified 10/24/23 06:32 Home Medications Medication Instructions Recorded Confirmed Type amoxicillin 875 mg-potassium 1 tab PO BID #14 tabs 02/14/23 10/24/23 Rx clavulanate 125 mg tablet clindamycin HCl 300 mg capsule 450 mg (1.5 x 300 mg) PO Q8H #21 04/11/23 10/24/23 Rx caps Exam Const General: cooperative and comfortable Orientation: alert, awake and oriented x3 HENMT Head: normal to inspection Eyes General: appearance normal, both eyes and all related structures Neck Neck: normal visual inspection and full ROM Resp Effort & Inspection: normal respiratory effort Auscultation: clear to auscultation bilaterally GI Inspection: normal to inspection and non-distended Palpation: soft and tender (Right upper quadrant) Skin General skin exam: no rashes or lesions noted Neuro General: patient alert, patient awake and patient oriented x3 Results Labs 10/24/23 06:05 10/24/23 06:25 Labs: Laboratory Results - last 24 hr 10/24/23 10/24/23 06:05 06:25 WBC 14.93 H RBC 5.32 Hgb 16.2 Hct 49.8 MCV 94 MCH 30.5 MCHC 32.5 RDW 13.0 Plt Count 337 MPV 9.1 Immature Gran % 0.7 Neutrophils % 67.8 Lymphocytes % 22.2 Monocytes % 7.3 Eosinophils % 1.6 Basophils % 0.4 Nucleated RBC % 0.0 Absolute Neutrophils 10.12 H Absolute Lymphocytes 3.31 Absolute Monocytes 1.09 H Absolute Eosinophils 0.24 Absolute Basophils 0.06 PT 9.5 INR 0.9 APTT 23.5 L VBG Lactate 2.2 H* Sodium Cancelled 142 Potassium Cancelled 3.7 Chloride Cancelled 105 Carbon Dioxide Cancelled 26.9 Anion Gap Cancelled 10.1 BUN Cancelled 16 Creatinine Cancelled 1.2 Est GFR (CKD-EPI 2020) Cancelled 78.89 Glucose Cancelled 121 H Calcium Cancelled 9.3 Total Bilirubin Cancelled 0.3 AST Cancelled 18 ALT Cancelled 26 Alkaline Phosphatase Cancelled 61 Troponin I Cancelled < 50 Total Protein Cancelled 7.0 Albumin Cancelled 3.3 L Lipase Cancelled 54 Last Vital Signs Temp 97.7 F 10/24/23 05:52 Pulse 79 10/24/23 07:18 Resp 26 H 10/24/23 05:52 BP 133/73 10/24/23 07:18 Pulse Ox 96 10/24/23 07:34 Time Spent Time spent with Patient: 40-54 minutes Time was spent: preparing to see the patient(eg.review tests), indepentently interpreting results and counseling the patient
[2023-10-24 08:14] LABS: Bilirubin Negative (Negative); Blood Negative (Negative); Clarity Clear (Clear); Glucose Negative (Negative); Ketones Negative (Negative); Leukocyte Esterase Negative (Negative); Nitrite Negative (Negative); Urobilinogen 0.2 mg/dL (Up to 0.2); pH 5.5 (5-8)
[2023-10-24] MEDS: PIPERACILLIN/TAZO 3.375 GM in Normal Saline 50 ML IVPB ×3 (08:16→15:00)
[2023-10-24] MEDS: ACETAMINOPHEN 1,000 MG/100 ML BTL 400 MG IVPB (09:28)
[2023-10-24] MEDS: Enoxaparin 40 MG/0.4 ML SYR SC ×2 (09:29→20:50)
[2023-10-24] MEDS: Normal Saline Flush 10 ML SYR IVP ×3 (09:29→20:50)
[2023-10-24 11:28] LABS: Troponin I < 50 ng/L (< or =60)
--- NOTE | 2023-10-24 12:52 | ANES.PREOP_ITS ---
General Info Date of Service Date Performed: 10/24/23 Height: 5 ft 6 in Weight: 113.398 kg Body Mass Index (BMI): 40.3 Surgical Procedure: Operation Date: 10/24/23 14:55 Proposed Procedure Side Surgeon p Cholecystectomy Laparoscopic Aston Gibbs MD Meds Allergies and Home Medications Allergies Allergy/AdvReac Type Severity Reaction Status Date / Time tramadol Allergy Severe Anaphylaxis Unverified 10/24/23 06:32 cat dander AdvReac Mild Itching Unverified 10/24/23 06:32 Home Medication Medication Instructions Recorded amoxicillin 875 mg-potassium 1 tab PO BID #14 tabs 02/14/23 clavulanate 125 mg tablet clindamycin HCl 300 mg capsule 450 mg (1.5 x 300 mg) PO Q8H #21 04/11/23 caps Current Visit Medications: Current Medications Generic Name Dose Route Start Last Admin Trade Name Freq PRN Reason Stop Dose Admin Enoxaparin Sodium 40 mg 10/24/23 08:00 10/24/23 09:29 Enoxaparin 40 Mg/0.4 Ml Syr SC 40 mg Q12H LAVERNE Administration Hydromorphone HCl 1 mg 10/24/23 09:07 Hydromorphone 2 Mg/Ml Syr IVP Q6H PRN PRN Ringer's Solution 1,000 mls @ 75 mls/hr 10/24/23 09:07 IV INFUSION LAVERNE Piperacillin Sod/Tazobactam 50 mls @ 100 mls/hr 10/24/23 14:00 Sod 3.375 gm/ Sodium Chloride IVPB Q6H LAVERNE Acetaminophen 1,000 mg in 100 mls @ 400 mls/hr 10/24/23 08:00 10/24/23 10:20 Ofirmev IVPB Infused Q6H LAVERNE Infusion IV Miscellaneous Supplies 1 each 10/24/23 09:07 Iv Access IV DIRECTED LAVERNE Ondansetron HCl 4 mg 10/24/23 09:07 Ondansetron 4 Mg/2 Ml Vial IVP Q4H PRN PRN Sodium Chloride 0 ml 10/24/23 09:07 Normal Saline Flush 10 Ml Syr IVP PRN PRN Sodium Chloride 0 ml 10/24/23 09:07 10/24/23 09:29 Normal Saline Flush 10 Ml Syr IVP 10 ml BID LAVERNE Administration Sodium Chloride 0 ml 10/24/23 09:07 Normal Saline 10 Ml Vial IJ DIRECTED PRN PFSH Active Problems Active Problems: Problem Status Onset Code Acute cholecystitis K81.0 Visit for wound check Z51.89 Laceration of scalp S01.01XA Tobacco Smoking/Tobacco Use Status: Never Alcohol Alcohol Intake: never Substance Use Substance use: Never Substance use type: does not use Vital Signs and Lab Results Vital Signs Most Recent Vital Signs in EMR: Most Recent Vital Signs Temp Pulse Resp BP Pulse Ox 36.2 C L 68 18 126/88 97 10/24/23 08:59 10/24/23 08:59 10/24/23 08:59 10/24/23 08:59 10/24/23 08:59 Lab Results 10/24/23 06:05 10/24/23 06:25 Blood Type / Crossmatch: 2 No Data to Display Complete Blood Count: 2 White Blood Count 14.93 10^3/uL (4.4-10.8) H 10/24/23 06:05 Red Blood Count 5.32 10^6/uL (4.36-5.78) 10/24/23 06:05 Hemoglobin 16.2 g/dL (13.5-17.5) 10/24/23 06:05 Hematocrit 49.8 % (40.0-50.0) 10/24/23 06:05 Platelet Count 337 10^3/uL (130-400) 10/24/23 06:05 Venous Blood Lactate 2.2 mmol/L (0.6-1.4) H* 10/24/23 06:05 Complete Metabolic Panel: 2 Sodium 142 mmol/L (136-145) 10/24/23 06:25 Potassium 3.7 mmol/L (3.5-5.1) 10/24/23 06:25 Chloride 105 mmol/L (98-107) 10/24/23 06:25 Carbon Dioxide 26.9 mmol/L (21.0-32.0) 10/24/23 06:25 BUN 16 mg/dL (7-18) 10/24/23 06:25 Creatinine 1.2 mg/dL (0.70-1.30) 10/24/23 06:25 Est GFR (CKD-EPI 2020) 78.89 (mL/min/1.73m2) 10/24/23 06:25 Calcium 9.3 mg/dL (8.5-10.1) 10/24/23 06:25 Albumin 3.3 g/dL (3.4-5.0) L 10/24/23 06:25 Glucose 121 mg/dL (74-106) H 10/24/23 06:25 Liver Function Panel: 2 Alanine Aminotransferase (ALT/SGPT) 26 U/L (16-63) 10/24/23 06: 25 Aspartate Amino Transf (AST/SGOT) 18 U/L (15-37) 10/24/23 06:25 Coagulation Panel: 2 INR International Normalized Ratio 0.9 (0.9-1.1) 10/24/23 06:0 5 Prothrombin Time 9.5 sec (9.1-11.1) 10/24/23 06:05 Activated Partial Thromboplast Time 23.5 sec (23.6-32.8) L 10/24/23 06:05 Cardiac Panel: 2 Troponin I < 50 ng/L (< or =60) 10/24/23 Arterial Blood Gas: 2 No Data to Display Venous Blood Gas: 2 No Data to Display Pancreas Panel: 2 Lipase 54 U/L (16-77) 10/24/23 06:25 Thyroid Panel: 2 No Data to Display Infectious Disease: 2 No Data to Display Blood Cultures: 2 No Data to Display Toxicology Panel: 2 No Data to Display Anesthesia Assessment and Plan Anesthesia History Personal History: No History of Anesthesia Complications Family History: No Family History of Anesthesia Complications Exercise Tolerance Exercise Tolerance: Metabolic Equivalents>4 Pertinent Negatives Pertinent Negatives: No Symptoms of GERD, No Major Cardiovascular Symptoms or Complaints, No Major Pulmonary Symptoms or Complaints and No History of CVA/TIA Cardiac & Pulmonary Exam Cardiac Exam: Normal S1/S2 Heart Sounds Pulmonary Exam: Clear Bilateral Breath Sounds Implantable Cardiac Device Does patient have a Pacemaker or an ICD?: No Airway Exam Known Difficult Airway: No Mallampati Class: 2 Mouth Opening: Normal (> 3cm) Thyromental Distance: Greater than 3 cm Neck Range of Motion: Full ROM Neck Circumference: Normal Teeth Condition: Normal Dentition ASA Classification ASA Score: ASA 3 Emergency Case?: No NPO Status NPO Status: NPO Clears >2 hours, Solids >8 hours Anesthesia Plan Resuscitation Status: Full Code Anesthesia Technique: General Anesthesia Airway Planned: Endotracheal Tube Monitors Used: Standard Monitors
[2023-10-24] MEDS: Lactated Ringers 1,000 ML 75 ML IV (13:35)
[2023-10-24] MEDS: Indocyanine green 25 MG VIAL (14:33)
[2023-10-24] MEDS: Bupivacaine 0.25% Pres-Free 30 ML VIAL (14:45)
--- NOTE | 2023-10-24 15:26 | GB_PTH ---
PATIENT: Young Cruz JR LOC: [id number]#:[id number] AGE/SX: 38/M ROOM: 229 RE10/24/[address]: Aston Gibbs MD : [id number] BED: A DIS: 10/25/2023 SPEC #: [id number] RECD: 10/24/23 17:48 STATUS: CHRIS REQ #: [id number] CURTIS: 10/24/23 15:[address]: Aston Gibbs DEPT: Surgical Specimen RECD BY: Kayla Ruiz ENTERED: 10/24/23 17:48 SP TYPE: GB OTHR DR: Unknown,Unknown Tissues: 1 - GALLBLADDER Procedures: GROSS AND MICRO LEVEL 3 Comments: [id number]
--- NOTE | 2023-10-24 15:39 | ROE_ITS ---
Date of service: 10/24/23 Time of Service: 15:40 Operative Note Operative Note DATE OF PROCEDURE: 10/24/23 PRE-OP DIAGNOSIS: Acute cholecystitis POST-OP DIAGNOSIS: same PROCEDURE: Laparoscopic cholecystectomy SURGEON: Aston Gibbs BUSINESS APPLICATIONS MANAGER: Nishi Kaufman ANESTHESIA TYPE: General LMA/ETT Refer to Anesthesia Record ESTIMATED BLOOD LOSS: 25 PATHOLOGY: other (Gallbladder) COMPLICATIONS: None Patient was transported to: PACU Patient's condition: stable Indications: Young is a 38-year-old man with acute onset of midepigastric and right upper abdominal pain. He was found have a leukocytosis, and he underwent a CAT scan that suggested acute cholecystitis. Findings: Acute calculus cholecystitis Procedure Description: After satisfactory induction of general anesthesia, I prepped and draped the abdomen in usual fashion. Next, I began with a periumbilical incision. I dissected down to the fascia and elevated it with Juan clamps. I incised it sharply. Next, I passed a 12 mm operating port in the umbilical site. I secured it to the fascia with 0 Vicryl stitches. I then insufflated the peritoneal cavity. Next I inserted a 5 mm 30 degree scope and examined the underlying viscera. There was no evidence of injury created upon entry. I then placed the patient in some reverse Trendelenburg and left side down positioning. Then, with the assistance of the laparoscope, I used local anesthetic to anesthetize the midepigastric and 2 right upper quadrant port sites. Under the vision of the laparoscope, I passed 3 more 5 mm ports. I then grasped the gallbladder fundus and elevated cephalad. I began by dissecting the gallbladder infundibulum. With the assistance of indocyanine green visualization, and staying quite high on the gallbladder, I worked in a lateral to medial fashion. Once I skeletonized the cystic duct and cystic artery, with a satisfactory critical view of safety, I doubly clipped and divided them. I then used electrocautery to dissect the gallbladder off the gallbladder fossa. I passed the gallbladder into an Endo Catch bag and removed it by way of the umbilical site. I examined the surgical field. It was hemostatic. I then removed the 5 mm ports under the vision of the laparoscope. Finally, I removed the umbilical port site and closed the fascia with Vicryl stitches. Sites were irrigated, and the skin was closed with subcuticular stitches. Bandages were applied, patient was awakened from anesthesia, and transferred to the recovery unit.
--- NOTE | 2023-10-24 16:34 | W.ANESPOSTOP ---
Postoperative Evaluation Date, Time and Location Date Performed: 10/24/23 Time Performed: 16:34 Patient Location: PACU Vital Signs Most Recent Imported Vital Signs: Most Recent Vital Signs Temp Pulse Resp BP Pulse Ox 36.5 C 76 18 146/75 H 99 10/24/23 16:25 10/24/23 16:25 10/24/23 16:25 10/24/23 16:25 10/24/23 16:25 Pain Score Most Recent Pain Score: Most Recent Pain Score Pain Level 1 10/24/23 16:25 Assessment Mental Status: Awake (Alert & Oriented to Patient Baseline) Airway and Respiratory Function: Patent airway with normal (patient baseline) respiratory exam Cardiovascular Function: Hemodynamically Stable Hydration Status: Adequately Hydrated Nausea & Vomiting: No Nausea or Vomiting Pain: Pain is tolerable per patient Peripheral Nerve Block: Patient did not receive a nerve block
[2023-10-24] MEDS: HYDROmorphone 2 MG TAB PO ×2 (16:54→20:49)
[2023-10-24] MEDS: Acetaminophen 500 MG TAB 1000 MG PO (17:46)
[2023-10-25] MEDS: Acetaminophen 500 MG TAB 1000 MG PO (02:42)
[2023-10-25] MEDS: HYDROmorphone 2 MG TAB PO (04:50)
[2023-10-25] MEDS: Ketorolac 15 MG/ML VIAL IVP (07:41)
[2023-10-25] MEDS: Normal Saline Flush 10 ML SYR IVP (07:41)
[2023-10-25] MEDS: Enoxaparin 40 MG/0.4 ML SYR SC (07:42)
[2023-10-25 08:40] VITALS: BP 128/86; PULSE 76; RESP 15; TEMP 37; O2SAT 95
--- NOTE | 2023-10-25 10:41 | W.PM.PROGNOT ---
Date of Service Date of service: 10/25/23 Time of Service: 10:41 Assessment and Plan Assessment and plan (1) Acute cholecystitis: Status: Acute Assessment and plan: I think Young is doing very well after laparoscopic cholecystectomy. Will see how he tolerates his breakfast this morning, and hope for discharge later today Subjective Subjective Interval history since last seen: Young is doing pretty well today. He was able to tolerate a little bit of his diet last night, he had no nausea or vomiting. He did have some difficulty sleeping because of surgical site pain, but that seems to be better through the morning time. Exam GI Other: Abdomen is soft and nondistended. Dressings are all clean and dry. Objective Last Vital Signs Temp 98.6 F 10/25/23 08:40 Pulse 76 10/25/23 08:40 Resp 15 10/25/23 08:40 BP 128/86 10/25/23 08:40 Pulse Ox 95 10/25/23 08:40 Laboratory Results - last 24 hr 10/24/23 10:50 Troponin I < 50 Time Spent with Patient Time Spent with Patient: <25 minutes Time was spent: preparing to see the patient(eg.review tests), counseling the patient and care coordination
--- NOTE | 2023-10-25 10:42 | W.PM.DS.N ---
Date of service: 10/25/23 Time of Service: 10:42 DS: Diagnosis Discharge Diagnosis (1) Acute cholecystitis: Status: Acute Asessment and Plan: Outpatient postoperative follow-up Discharge Plan Disposition Patient Disposition: Home Condition: Good Discharge Details Reason For Visit: cholecystitis Admit Date/Time: 10/24/23 07:50 Admit Provider: Aston Gibbs Attending Provider: Aston Gibbs Primary Care Provider: Unknown,Unknown Hospital Course Hospital Course: Young is 38 years old, he came to the emergency department after the acute onset of abdominal and chest pain. He was found to have leukocytosis, and underwent a CAT scan of the abdomen and pelvis that demonstrated a large gallstone, and some findings consistent with acute cholecystitis. He went to the operating room later that day and underwent uncomplicated laparoscopic cholecystectomy.. By the next morning, he was tolerating some diet and felt safe to be discharged home with outpatient follow-up. Home Meds and New Rx's Prescriptions: New hydromorphone [Dilaudid] 2 mg tablet 2 mg PO Q6H PRNQty: 12 0RF Rx Instructions: Take 1 tablet by mouth if needed for more severe pain. Do not drive while using this medication. Continued clindamycin HCl 300 mg capsule 450 mg PO Q8H Qty: 21 0RF Discontinued amoxicillin-pot clavulanate 875-125 mg tablet 1 tab PO BID Qty: 14 0RF Patient Comments: Pt states no longer taking - ABX completed several months ago ML 04/11/23 Discharge Instructions Instructions: Laparoscopic Cholecystectomy (GEN) Additional Instructions: Young is a pleasure meeting you in the hospital, and I hope you make a quick recovery from the removal of your gallbladder. I have made a follow-up appointment in our office for November 06 at 11:45 AM, and I look forward to seeing you at that time. You should be up and moving around a little more more each day. Be careful with lifting, and I recommend keeping it to less than 10 pounds for the first 2 weeks. Expect to have some bruising around the incisions as that is quite common. I would like to know if you notice the skin turning bright red, or if there is any drainage or discharge from the incisions. If you have any questions in the meantime, please do not hesitate to call or ask at any point. 1. Resume all of your medications. 2. Use heating pads and ice packs over the incisions to help with pain. 3. Use [id number] Tylenol and ibuprofen. You should alternate these every 6 hours for the first 2 days, then moved to using them as needed. I have also provided a prescription for some Dilaudid in case you need something stronger. 4. Leave bandages in place for 24 hours, then remove. 5. Shower with warm soapy water. Pat dry. Use a bandaids if needed to protect your clothing. 6. No soaking or tub baths until I see you in the office. 7. No heavy lifting until I see you in the office. 8. Call the office (or go directly to the emergency room after hours) if you notice any of the following: Develop chills (warm to touch), or if you have a thermometer and your temperature is above 101 Difficulty breathing or difficultly swallowing Persistent vomiting Any bleeding ? exceeding one tablespoon 9. Call your physician if the site where your intravenous was started becomes red, swollen, painful, and warm to touch. Referrals: Aston Gibbs MD [ [facility] STAFF PHYSICIAN] - (November 06 11:45 AM) Activity:: No heavy lifting Equipment/Supplies:: No Equipment Needed Diet:: As Tolerated DS: Summary Time Spent with Patient providing and/or coordinating discharge services: Less than 30 minutes Status at Discharge Functional status at discharge: independent ambulation Overall status at discharge: patient is back to baseline Mental Status: mental status grossly normal Speech and Movement: speech and movement normal Mood: congruent mood Affect: normal affect Quality:SDOH Health Related Social Needs: No Data to Display Exam GI Other: Abdomen is soft and nondistended. He has expected postoperative tenderness at the incisions. Bandages are all clean and dry. Psych Mental Status: mental status grossly normal Speech and Movement: speech and movement normal Mood: congruent mood Affect: normal affect DS: Data Vitals/I&O Vitals and I&O: Vital Signs Temperature 98.6 F 10/25/23 08:40 Temperature Source Tympanic 10/25/23 08:40 Pulse 76 10/25/23 08:40 Pulse Rhythm Regular 10/24/23 23:59 Respiratory Rate 15 10/25/23 08:40 Respiratory Effort Normal, Non-Labored 10/24/23 23:59 Respiratory Depth Normal 10/24/23 23:59 Respiratory Pattern Normal 10/24/23 23:59 Blood Pressure 128/86 10/25/23 08:40 Blood Pressure Mean 94 10/24/23 07:18 Pulse Oximetry 95 10/25/23 08:40 Respiratory End-tidal CO2 30 10/24/23 16:10 Oxygen Delivery Method Room Air 10/25/23 08:40 Oxygen Flow Rate 0 10/25/23 08:40 Pain Level 5 10/25/23 08:40 Intake & Output 10/24/23 10/24/23 10/25/23 11:59 23:59 11:59 Intake Total 1149 886. / Output Total Balance 1149 861. Weight 250 lb 250 lb Intake: IV 1149 88. Output: Estimated Blood Loss Other: Urine Color Yellow Yellow Urine Appearance Clear Clear Clear Emesis Description None Voiding Methods Toilet Toilet Data Completed and Pending Labs on day of discharge: Labs from last 24 hours 10/24/23 10:50 Troponin I < 50 PFSH All Active Problems Acute cholecystitis (Acute) Visit for wound check (Acute) Laceration of scalp (Acute) Social History Smoking/Tobacco Use Status: Never Smoking risk assessment performed?: Yes Alcohol Intake: never Drug use: Never Substance use type: does not use Housing: house Do you feel safe at home: Yes Do you feel safe in your relationship?: Yes Time Spent with Patient Time Spent with Patient: <45 minutes Time was spent: ordering medications,tests, procedures and counseling the patient
== END 2023-10-25 12:05 | disposition home or self-care (01) ==
LOC: ER 08:51 → MS 08:56
PROVIDERS: Admitting Provider Surgery; Emergency Provider Student in an Organized Health Care Education/Training Program; Visit Provider Surgery
PROC: 0FT44ZZ Resection of Gallbladder, Percutaneous Endoscopic Approach (ICD-10-PCS; CPT 47562; principal; 2023-10-24 14:45)
DX: K80.46 Calculus of bile duct with acute and chronic cholecystitis without obstruction (principal); R11.2 Nausea with vomiting, unspecified; D72.829 Elevated white blood cell count, unspecified
CPT/HCPCS: 47562; 36415; 74177; 80053; 83690; 93005; 96361; 96365; 96366; 96367; 96372; 96375; 96376; 99285; J1650; 71260; 81003; 83605; 84484; 85025; 85610; 85730; 88304; 93010; G0378; J0131; J0665; J1100; J1170; J1805; J1885; J2001; J2250; J2270; J2371; J2405; J2543; J2704; J3490

== ENCOUNTER 2023-11-17 14:35 | Emergency (ER) | payer MEDICAID, SELFPAY ==
[2023-11-17 14:41] VITALS: BP 144/80; PULSE 89; RESP 18; TEMP 36.5; O2SAT 98
[2023-11-17 15:53] VITALS: BP 149/94; PULSE 76; RESP 18; TEMP 36.6; O2SAT 96
[2023-11-17 16:42] VITALS: BP 146/90; PULSE 71; RESP 16; O2SAT 99
--- NOTE | 2023-11-17 16:50 | ED.GENADUL_ITS ---
Discharge Plan Disposition Patient Disposition: Home Discharge Details Clinical Impression: Immunization, tetanus-diphtheria, Cellulitis of left finger Primary Care Provider: Unknown,Unknown ED Provider: Patrice Love Home Meds and New Rx's Prescriptions: New cefpodoxime 200 mg tablet 200 mg PO Q12H 7 Days Qty: 20 0RF Rx Instructions: must administer with a meal/food Continued diphenhydramine HCl [Allergy (diphenhydramine)] 25 mg capsule 25 mg PO HS Discharge Instructions Instructions: Cellulitis (ED) Additional Instructions: You were seen in the emergency department for your finger swelling. You have a local skin infection. Please take these antibiotics as directed. Please note that your swelling may worsen over the next 48 hours. If your swelling does not begin improving by Sunday evening please return to the emergency department. Please also return if you develop vomiting fevers or any color changes in your fingertips. Please take the antibiotics that have been sent to your pharmacy electronically starting tomorrow morning. For your pain please take medications as follows: 1. Take acetaminophen (Tylenol), 1,000 mg (two 500 mg tabs) every 6 hours [2. Take ibuprofen (Advil), 400 mg every 6 hours.] Discharge Data Discharge Date/Time-TO BE ENTERED AT DEPARTURE: 11/17/23 17:12 HPI General Date/Time Provider Initiated Documentation: 11/17/23 16:25 . HPI Narrative: MDM This is an overall very well-appearing [id number] normothermic and not tachycardic previously healthy 38-year-old male with left middle finger cellulitis status post spider bite for which he will receive outpatient antibiotics using cefpodoxime for adherence given lack of MRSA risk factors. No pain out of proportion to suggest necrotizing soft tissue infection. No significant fusiform swelling nor pain with passive range of motion nor percussive tenderness along the flexor tendon sheath to suggest flexor tenosynovitis although the digit is held in slight flexion. No significant fluctuance to suggest abscess. Finger warm well-perfused so not concern for critical limb ischemia so did not feel the patient requires a CT scan. Patient does have slightly limited range of motion in his left middle finger however this is likely secondary to swelling. Given lack of trauma I am not suspicious for any extended pseudo flexor tendon injuries. No underlying bony tenderness to suggest fracture so I did not obtain x-ray. Patient and I discussed that he is erythema could worsen for the next 48 hours. I advised that if he developed vomiting worsening pain or swelling or could not move his finger that he return to the emergency department. Patient is not at risk for poor wound healing as he is neither diabetic nor a smoker. Otherwise I did treat him with 7 days of cefpodoxime to facilitate adherence with twice daily dosing. Patient understood his return indications and was discharged with empiric trial of outpatient oral antibiotics. HPI This is a previously healthy [id number] 38-year-old male arrived to the emergency department via private vehicle in the setting of bleed she sustained approximately 3 days ago. Patient reports being bit on the dorsal aspect of his left long finger. He has noticed worsening swelling over the past several days. He denies history of diabetes. No fevers close the patient has occasionally felt dizzy today. Denies routine tobacco, ethanol, and illicits. Denies nausea or vomiting. No fevers. Patient does report slightly decreased range of motion in his left long finger limited secondarily by pain. Exam General: Well-appearing in no acute distress speaking in complete sentences. Head: Normocephalic, atraumatic. Eye: Extraocular eye movements intact. No conjunctival injection. No scleral icterus. Ear, nose, mouth, throat: Grossly normal inspection. Normal voice, handling secretions normally. Neck: Trachea midline. Cardiovascular: Well-perfused distal extremities. Respiratory: Nonlabored respiration. Gastrointestinal: Nondistended abdomen. Musculoskeletal: Left hand: Left hand with swelling in the left long finger between the MCP and PIP joint with slightly radial necrotic area approximately 1 mm at center of erythema. Left hand warm well-perfused 2+ left radial pulse. Patient is able to nearly fully flex his left long finger however this is limited at the MCP and PIP joints secondarily to swelling. No significant fluctuance. No purulent drainage. No percussive tenderness along flexor tendon sheath. No fusiform swelling. No pain with passive range of motion. Please see picture that follows: Skin: Normal for age and race, grossly normal temperature and turgor. No acute rash. Neurologic: Alert and appropriate, no apparent acute deficits. Psychiatric: Mood and manner are appropriate. Grooming and personal hygiene are appropriate. Related Data Home Medications Medication Instructions Recorded Confirmed cefpodoxime 200 mg tablet 200 mg PO Q12H 7 days #20 tabs 11/17/23 diphenhydramine HCl 25 mg capsule 25 mg PO HS 11/17/23 11/17/23 (Allergy (diphenhydramine)) Previous Rx's Medication Instructions Recorded cefpodoxime 200 mg tablet 200 mg PO Q12H 7 days #20 tabs 11/17/23 Allergies Allergy/AdvReac Type Severity Reaction Status Date / Time tramadol Allergy Severe Anaphylaxis Unverified 11/17/23 14:44 cat dander AdvReac Mild Itching Unverified 11/17/23 14:44 General Stated Complaint: Cellulitis BRYAN: 3 Course Vital Signs Vital signs: Vital Signs Temperature 36.5 C 11/17/23 14:41 Pulse 89 11/17/23 14:41 Respiratory Rate 18 11/17/23 14:41 Blood Pressure 144/80 H 11/17/23 14:41 Pulse Oximetry 98 11/17/23 14:41 Temperature 36.6 C 11/17/23 15:53 Temperature Source Skin 11/17/23 15:53 Pulse 71 11/17/23 16:42 Respiratory Rate 16 11/17/23 16:42 Respiratory Effort Normal, Non-Labored 11/17/23 16:39 Blood Pressure 146/90 H 11/17/23 16:42 Blood Pressure Position Sitting 11/17/23 14:41 Pulse Oximetry 99 11/17/23 16:42 Oxygen Delivery Method Room Air 11/17/23 16:42 Oxygen Flow Rate 0 11/17/23 15:53 Medical Decision Making Quality:SDOH Health Related Social Needs: 2 No Data to Display PFSH All Active Problems (Updated 11/17/23 @ 16:52 by Patrice Love MD) Cellulitis of left finger (Acute) Immunization, tetanus-diphtheria (Acute) Visit for wound check (Acute) Laceration of scalp (Acute) Social History Smoking/Tobacco Use Status: Never Smoking risk assessment performed?: Yes Alcohol Intake: never Drug use: Never Substance use type: does not use Housing: house Do you feel safe at home: Yes Do you feel safe in your relationship?: Yes
[2023-11-17] MEDS: Acetaminophen 500 MG TAB 1000 MG PO (17:07)
[2023-11-17] MEDS: Cefpodoxime 200 MG TAB PO (17:07)
[2023-11-17] MEDS: Ibuprofen 600 MG TAB PO (17:10)
== END 2023-11-17 17:12 | disposition home or self-care (01) ==
PROVIDERS: Emergency Provider Emergency Medicine
DX: R42 Dizziness and giddiness; L03.012 Cellulitis of left finger; T63.301A Toxic effect of unspecified spider venom, accidental (unintentional), initial encounter
CPT/HCPCS: 90471; 90715; 99284; 99283

== ENCOUNTER 2023-11-19 02:48 | Emergency (ER) | payer MEDICAID, SELFPAY ==
[2023-11-19 02:51] VITALS: BP 177/106; PULSE 92; RESP 14; TEMP 36.9; O2SAT 98
--- NOTE | 2023-11-19 03:15 | DI.RAD_ITS ---
Exam(s) XR HAND LT COMPLETE EXAM: XR HAND LT COMPLETE CLINICAL HISTORY: abscess 3rd digit dorsal aspect eval foreign body. TECHNIQUE: 2D digital imaging was performed of the left hand. Three views were obtained. AP, later al and oblique views were obtained. COMPARISON: No exams were available for comparison FINDINGS: BONES: No acute fracture is present. No bony destructive lesion is seen. JOINTS: No dislocation present. SOFT TISSUE: There is marked soft tissue swelling of the 3rd finger. No radiopaque foreign body is s een. No subcutaneous gas is seen. IMPRESSION: 1. Marked soft tissue swelling of the 3rd finger without evidence of foreign body or subcutaneous gas . 2. No radiographic evidence to suggest osteomyelitis. DATA REPOSITORY: RADIATION DOSE DELIVERED:
[2023-11-19] MEDS: Ketorolac 15 MG/ML VIAL IM (03:28)
[2023-11-19] MEDS: Acetaminophen 500 MG TAB 1000 MG PO (03:28)
--- NOTE | 2023-11-19 03:29 | ED.GENADUL_ITS ---
Discharge Plan Disposition Patient Disposition: Home Condition: Good Discharge Details Clinical Impression: Abscess Primary Care Provider: Unknown,Unknown ED Provider: Petty Vigil Home Meds and New Rx's Prescriptions: New sulfamethoxazole-trimethoprim [Bactrim DS] 800-160 mg tablet 1 tab PO BID Qty: 14 0RF Continued diphenhydramine HCl [Allergy (diphenhydramine)] 25 mg capsule 25 mg PO HS cefpodoxime 200 mg tablet 200 mg PO Q12H 7 Days Qty: 20 0RF Rx Instructions: must administer with a meal/food Discharge Instructions Instructions: Abscess (ED) Additional Instructions: Continuing taking the cefpodoxime you were already prescribed Please also start taking Bactrim twice a day. Tylenol & ibuprofen over the counter for pain; follow the directions on the bottle. Call your primary care doctor today to schedule an appointment to be seen within the next 48 hours to see how your hand is doing. Return to the emergency department for new or worsening symptoms including worsening pain or swelling, pain with opening or closing your hand or inability to open or close your hand, fever, or if you have any other concerns. It is very important that you seek medical attention if your symptoms do not improve in the next 2 days or if they worsen because these are signs of the infection spreading deeper into your hand and this can be extremely serious, require surgery, or result in impaired use of your hand or loss of use of your hand. Discharge Data Discharge Date/Time-TO BE ENTERED AT DEPARTURE: 11/19/23 04:45 HPI General Mode of arrival: ambulatory . Date/Time Provider Initiated Documentation: 11/19/23 03:08 . Limitations to Documentation: no limitations . Information obtained by: patient and RN notes reviewed . HPI Narrative: 38yo previously healthy male presenting for left hand 3rd digit pain and swelling, worsening over the past three days. Woke several days ago with break in skin on 3rd finger of left hand which he attributed to a spider bite. Seen in this ED 2 days and prescribed abx for cellulitis, since then swelling has been worsening. Somewhat difficulty to move 3rd digit because it 'feels tight', no significant pain with flexion or extension. No numbness, tingling, or weakness. Otherwise in his usual state of health with no fevers, chills, rash, nausea, abdominal pain, or other concerns. UTD on tetanus. Related Data Home Medications Medication Instructions Recorded Confirmed cefpodoxime 200 mg tablet 200 mg PO Q12H 7 days #20 tabs 11/17/23 11/19/23 diphenhydramine HCl 25 mg capsule 25 mg PO HS 11/17/23 11/19/23 (Allergy (diphenhydramine)) sulfamethoxazole 800 1 tab PO BID #14 tabs 11/19/23 mg-trimethoprim 160 mg tablet (Bactrim DS) Previous Rx's Medication Instructions Recorded cefpodoxime 200 mg tablet 200 mg PO Q12H 7 days #20 tabs 11/17/23 sulfamethoxazole 800 1 tab PO BID #14 tabs 11/19/23 mg-trimethoprim 160 mg tablet (Bactrim DS) Allergies Allergy/AdvReac Type Severity Reaction Status Date / Time tramadol Allergy Severe Anaphylaxis Unverified 11/17/23 14:44 cat dander AdvReac Mild Itching Unverified 11/17/23 14:44 General Stated Complaint: Cellulitis BRYAN: 4 Review of Systems Narrative: see HPI Exam Narrative Exam Narrative: General: Alert, well appearing, well nourished, in no acute distress. Head: Normocephalic, atraumatic Neck: Trachea midline, ?Neck supple. Cardiac: ?RRR Resp: No respiratory distress. Speaking in full sentences. Extremities: ?Left hand with localized swelling, warmth, and erythema to volar aspect of 3rd digit middle phalanx with central pustulence, palpable fluctuance. No tenderness to palpation of flexor surface, no tenderness to distal or proximal phalanx. Sensation intact to light touch throughout hand and all digits. Flexion and extension at 3rd digit somewhat limited 3nd to swelling, no significant pain with flexion or extension. Distal capillary refill intact. Neurologic: GCS 15. ? Moves all extremities freely against gravity Course Vital Signs Vital signs: Vital Signs Temperature 36.9 C 11/19/23 02:51 Pulse 92 H 11/19/23 02:51 Respiratory Rate 14 11/19/23 02:51 Blood Pressure 177/106 H 11/19/23 02:51 Pulse Oximetry 98 11/19/23 02:51 Temperature 36.9 C 11/19/23 02:51 Temperature Source Temporal Artery Scan 11/19/23 02:51 Pulse 92 H 11/19/23 02:51 Respiratory Rate 14 04/15/24 02:51 Respiratory Effort Normal 11/19/23 02:56 Blood Pressure 177/106 H 11/19/23 02:51 Blood Pressure Position Sitting 11/19/23 02:51 Pulse Oximetry 98 11/19/23 02:51 Oxygen Delivery Method Room Air 11/19/23 02:51 Oxygen Flow Rate 0 11/19/23 02:51 Pain Level 6 11/19/23 02:51 Procedures Abscess I/D Site: Hand Side (if applicable): Left Sedation/analgesia: None Local Anesthetic: Lidocaine 2% Amount of anesthesia used (mL): 1 Technique: Incised with #11 Blade Amount of fluid expressed (mL): 5 Irrigation: No Packing used?: None Medical Decision Making 38yo previously healthy male presenting for left hand 3rd digit pain and swelling, worsening over the past three days. Woke several days ago with break in skin on 3rd finger of left hand which he attributed to a spider bite. Seen in this ED 2 days and prescribed cefpodoxime for celluliitis, symptoms since then have been worsening. Systemically well, vital signs reassuring. Not concerning for sepsis. Exam with clear abscess over volar surface of middle phalanx of 3rd digit of left hand. Reassuring exam with no indication of deep space infection or involvement of flexor or extensor tendon sheath. Plain film hand independently reviewed, no foreign body on my view, agree with radiology read below. Abx broadened with bactrim for staph/MRSA coverage. With r eassuring exam, will cautiously I&D here. Given location on hand, small shallow incision made (~2mm long x 0.5mm deep) at point of maximum flluctuance and copious amount of purulent material expressed. Patient reports pain much improved. Able to range finger freely after, no pain with flexion or extension. No indication for admission for IV antibiotics or hand surgery consult at this time. Sent home on bactrim in addition to previously prescribed cefpo. I reviewed with Mr. Cruz strict return precautions and instructed him to followup with his PCP within the next 2 days. I stressed the importance of re- presenting for care should his symptoms return or worsen as well as the potential for disability and loss of use of his hand should he fail to return if his symptoms did not improve, and reviewed extensively with him the symptoms of deep space infections of the hand. He verbalized full understanding of these instructions and of the importance of following them. All questions were answered and he is in full agreement with the plan. Medical Records Medical records reviewed: Yes I reviewed the patient's medical records. Medical records narrative: ED visit 11/16/23 Imaging Data Radiologic Study: Imaging: X-Ray Radiologist's impression: IMPRESSION: Substantial soft tissue swelling the 3rd digit. No discernible foreign body or soft tissue gas. Quality:SDOH Health Related Social Needs: No Data to Display PFSH All Active Problems (Updated 11/19/23 @ 04:28 by Petty Vigil MD) Abscess (Acute) Cellulitis of left finger (Acute) Immunization, tetanus-diphtheria (Acute) Visit for wound check (Acute) Laceration of scalp (Acute) Social History Smoking/Tobacco Use Status: Never Smoking risk assessment performed?: Yes Alcohol Intake: never Drug use: Never Substance use type: does not use Housing: apartment Do you feel safe at home: Yes Do you feel safe in your relationship?: Yes
[2023-11-19] MEDS: Sulfameth/Trimeth DS TAB 1 TAB PO (03:34)
--- NOTE | 2023-11-19 04:10 | DI.VRAD_ITS ---
PROCEDURE INFORMATION: Exam: XR Left Hand Exam date and time: 11/19/2023 3:38 AM Age: 38 years old Clinical indication: Swelling; Fingers; Left; Patient HX: Abscess 3rd digit dorsal aspect eval foreign body TECHNIQUE: Imaging protocol: Radiologic exam of the left hand. Views: 3 or more views. COMPARISON: No relevant prior studies available. FINDINGS: Bones/joints: No fracture or osseous erosion. Soft tissues: Substantial soft tissue swelling the 3rd digit. No discernible foreign body or soft tissue gas. IMPRESSION: Substantial soft tissue swelling the 3rd digit. No discernible foreign body or soft tissue gas. Dictated and Authenticated by: Lex Kimball MD. Ordering:KAYLIN Dove MD
--- NOTE | 2023-11-20 11:31 | ED.PROG_ITS ---
Date of service: 11/19/23 Time of Service: 03:29 Medical Decision Making Critical result received- wound culture MRSA positive. Patient has already been changed to Bactrim with cefpodoxime. Patient has been given close follow up instructions by Dr Vigil. Quality:[facility] Health Related Social Needs: No Data to Display Discharge Plan Disposition Patient Disposition: Home Condition: Good Discharge Details Clinical Impression: Abscess Primary Care Provider: Unknown,Unknown ED Provider: Petty Vigil Home Meds and New Rx's Prescriptions: New sulfamethoxazole-trimethoprim [Bactrim DS] 800-160 mg tablet 1 tab PO BID Qty: 14 0RF Continued diphenhydramine HCl [Allergy (diphenhydramine)] 25 mg capsule 25 mg PO HS cefpodoxime 200 mg tablet 200 mg PO Q12H 7 Days Qty: 20 0RF Rx Instructions: must administer with a meal/food Discharge Instructions Instructions: Abscess (ED) Additional Instructions: Continuing taking the cefpodoxime you were already prescribed Please also start taking Bactrim twice a day. Tylenol & ibuprofen over the counter for pain; follow the directions on the bottle. Call your primary care doctor today to schedule an appointment to be seen within the next 48 hours to see how your hand is doing. Return to the emergency department for new or worsening symptoms including worsening pain or swelling, pain with opening or closing your hand or inability to open or close your hand, fever, or if you have any other concerns. It is very important that you seek medical attention if your symptoms do not improve in the next 2 days or if they worsen because these are signs of the infection spreading deeper into your hand and this can be extremely serious, require surgery, or result in impaired use of your hand or loss of use of your hand. Discharge Data Discharge Date/Time-TO BE ENTERED AT DEPARTURE: 11/19/23 04:45
== END 2023-11-19 04:45 | disposition home or self-care (01) ==
PROVIDERS: Emergency Provider Student in an Organized Health Care Education/Training Program
DX: L02.512 Cutaneous abscess of left hand (principal)
CPT/HCPCS: 00123; 10060; 87077; 96372; 99283; 73130; 87070; 87186; 87205; J1885